=== PATIENT | male | born 1925 | race Caucasian/White ===

== ENCOUNTER 2016-11-02 21:00 | Emergency (ER) | payer MEDICARE, OTHER ==
[~2016-11-02] VITALS: Ht 170.2 cm; Wt 76.2 kg
[2016-11-02] MEDS ORDERED: ALEVE220 M1 PO (22:18)
[2016-11-02] MEDS ORDERED: ASPIRIN81 MG PO (22:18)
[2016-11-02] MEDS ORDERED: DORZOLAMIDE 2% EYEBOTH (22:19)
[2016-11-02] MEDS ORDERED: BRIMONIDINE 0.2% EYEBOTH (22:19)
[2016-11-02] MEDS ORDERED: PATANOL5 ML EYEBOTH (22:21)
[2016-11-02] MEDS ORDERED: ZOCOR20 MG PO (22:21)
[2016-12-10] MEDS ORDERED: TYLENOL500 MG PO (07:38)
[2016-12-10] MEDS ORDERED: ARICEPT5 MG PO (07:39)
[2016-12-10] MEDS ORDERED: LOMOTIL 0.025-21 TAB PO (07:44)
[2016-12-10] MEDS ORDERED: LUMIGAN 0.01%2.5 ML EYELF (07:45)
[2016-12-10] MEDS ORDERED: DORZOLAMIDE 2% EYELF (07:45)
== END 2016-11-02 22:40 | disposition short-term general hospital (02) ==
LOC: ER 21:00
DX: R19.7 Diarrhea, unspecified (principal); R52 Pain, unspecified

== ENCOUNTER → 2016-11-14 | Outpatient (CLI) | payer MEDICARE, OTHER ==
[~2016-11-14] MED LIST: ALEVE220 M1 PO; ARICEPT5 MG PO; ASPIRIN81 MG PO; BRIMONIDINE 0.2% EYEBOTH; DORZOLAMIDE 2% EYEBOTH; DORZOLAMIDE 2% EYELF; LOMOTIL 0.025-21 TAB PO; LUMIGAN 0.01%2.5 ML EYELF; PATANOL5 ML EYEBOTH; TYLENOL500 MG PO; ZOCOR20 MG PO
== END | disposition short-term general hospital (02) ==
LOC: CLNEUR 13:37
DX: R41.3 Other amnesia (principal)